=== PATIENT | female | born 1935 | race Caucasian/White ===

== ENCOUNTER 2020-07-09 15:18 | Outpatient (REF) | payer MEDICARE, SELFPAY ==
--- NOTE | ~2020-07-09 | MM_ITS ---
EXAMINATION: MM SCREENING DIGITAL BREAST TOMOSYNTHESIS, BILATERAL CLINICAL INFORMATION: Due for yearly exam. Right breast cancer 2016 status post lumpectomy. COMPARISON: Mammography: 03/31/2019, 03/15/2018, 01/21/2016 TECHNIQUE: Digital breast tomosynthesis is performed in both the craniocaudal and mediolateral oblique views along with computer-aided detection (CAD). Synthesized 2D images are generated from the tomosynthesis. FINDINGS: There are scattered areas of fibroglandular density (ACR BI-RADS breast composition Category b). There is bilateral fibronodular parenchymal pattern similar to prior exams with benign chronic postsurgical changes on the right. Right breast shows no interval mass or architectural abnormality or abnormal calcifications. There are chronic bilateral prominent draining veins. The left breast has benign dominant nodularity central anterior breast stable from prior studies. There is a nodule central left breast on current exam 9-10 cm from nipple. Finding is more conspicuous, possibly new. This resides close to the area of prior known dermal lesion. Patient will be recalled for additional imaging left breast. MM/MM tomosynthesis screening BI IMPRESSION: 1. Left: Nodule central breast 9 distal centimeters from nipple. There is a known dermal lesion on prior exams closed to this area, not currently marked. 2. Right: No mammographic evidence of malignancy. Old post surgical changes. ASSESSMENT: BI-RADS 0: Incomplete - Need Additional Imaging Evaluation RECOMMENDATION: 1. Additional views of the left breast (assess for dermal lesion and obtain spot CC and Spot ML view to include skin markers if applicable). 2. Targeted ultrasound if warranted after review of the additional views. 3. Radiology department staff will contact the patient for additional imaging. This patient's information was entered into a reminder system with a target due date for their next mammogram.
== END 2020-07-09 15:19 | disposition home or self-care (01) ==
LOC: HO.MAMMO 15:18
PROVIDERS: PCP Internal Medicine; Visit Provider Internal Medicine
DX: Z12.31 Encounter for screening mammogram for malignant neoplasm of breast (principal)
CPT/HCPCS: 77063; 77067

== ENCOUNTER 2020-07-16 13:04 | Outpatient (REF) | payer MEDICARE, SELFPAY ==
--- NOTE | ~2020-07-16 | MM_ITS ---
EXAMINATION: MM DIAGNOSTIC DIGITAL BREAST TOMOSYNTHESIS, LEFT US DIAGNOSTIC ULTRASOUND BREAST, LEFT CLINICAL INFORMATION: Recall from screening for nodule central left breast. Prior history contralateral right breast invasive ductal cancer 2016. COMPARISON: Mammography: 07/09/2020, 03/31/2019 TECHNIQUE: Digital breast tomosynthesis is performed. 2D images are generated from the tomosynthesis. The following views are obtained: 3-D spot CC, 3-D spot ML, 3-D spot MLO Ultrasound left breast is targeted to the outer quadrants. Grayscale imaging and color Doppler are performed without and with harmonics. The axilla and microvascular). FINDINGS: There are scattered areas of fibroglandular density (ACR BI-RADS breast composition Category b). The additional views confirm a nodule mid central 3:00 position approximately 0.7 x 0.4 cm with subtle fine irregular margins. Ultrasound left breast demonstrates small irregular hypoechoic nodule 2:30 position 5-6 cm from nipple measuring approximately 0.6 x 0.3 cm. This is believed to correspond to the finding on mammography. Results are discussed with the patient at time of visit. Ultrasound-guided core biopsy is recommended. Results and recommendation called to office ([facility]) for Dr. Avila on 07/16/2020. MM/MM tomosynthesis added views L IMPRESSION: Small irregular nodule taller than wide mid 3:00 position under 1 cm. ASSESSMENT: BI-RADS 4: Suspicious RECOMMENDATION: Ultrasound-guided core biopsy left breast nodule. This patient's information was entered into a reminder system with a target due date for their next mammogram.
== END 2020-07-16 13:05 | disposition home or self-care (01) ==
LOC: HO.MAMMO 13:04
PROVIDERS: Visit Provider Internal Medicine
DX: R92.2 Inconclusive mammogram (principal); Z85.3 Personal history of malignant neoplasm of breast
CPT/HCPCS: 76642; 77061; 77065

== ENCOUNTER → 2020-07-27 15:08 | Outpatient (BNVA) | payer MEDICARE, SELFPAY | PROVIDERS: PCP Internal Medicine; Visit Provider Surgery | DX: R92.8 Other abnormal and inconclusive findings on diagnostic imaging of breast (principal); N63.20 Unspecified lump in the left breast, unspecified quadrant; Z85.3 Personal history of malignant neoplasm of breast; Z98.890 Other specified postprocedural states | CPT/HCPCS: 99212 ==

== ENCOUNTER 2020-07-28 07:49 | Outpatient (REF) | payer MEDICARE, SELFPAY ==
--- NOTE | ~2020-07-28 | MM_ITS ---
EXAMINATION: ULTRASOUND GUIDED CORE BIOPSY BREAST, LEFT POST PROCEDURE DIGITAL MAMMOGRAM, LEFT CLINICAL INFORMATION: Small irregular hypoechoic nodule mid 3:00 position left breast under 1 cm. Prior history contralateral right breast invasive ductal cancer 2016. Age 84. COMPARISON: Mammography 07/09/2020, 07/16/2020, targeted left breast ultrasound 07/16/2020. FINDINGS: Proper informed consent is obtained from the patient after discussion of the procedure, potential risks and complications, and alternatives. Patient was given an opportunity for questions. The patient appeared to understand. The patient consented to the procedure and signed the consent form. GUIDANCE: Ultrasound-guided; aseptic technique. LESION: Subcentimeter hypoechoic nodule with ill-defined margins taller than wide 2:00 left breast mid depth. APPROACH: Lateral medial ANESTHESIA: 15 mL 1% lidocaine. DERMATOTOMY: Single skin tania dermatotomy performed. NEEDLE: 14-gauge Achieve core biopsy device with 13.5-gauge co-axial guide needle. CORES: 7. CLIP: HydroMARK; shape: open coil. POST PROCEDURE UNILATERAL DIGITAL MAMMOGRAM: The post biopsy mammogram is performed in separate room using separate digital mammography equipment from the biopsy procedure. CC and ML views are obtained. There are scattered areas of fibroglandular density (breast composition category: b). The clip marker is in position and corresponds to the finding on recent prior mammography. The ultrasound finding and mammographic finding are concordant. No gross hematoma. The patient tolerated the procedure well. No immediate complications. Home instructions reviewed with the patient. Final pathology results are pending. MM/MM diagnostic mammo unilat LT IMPRESSION: 1. Status post ultrasound-guided core biopsy left breast. 2. Clip placed: HydroMARK; shape: open coil. 3. Pathology pending. An addendum report will be issued.
== END 2020-07-28 07:50 | disposition home or self-care (01) ==
LOC: HO.MAMMO 07:49
PROVIDERS: Visit Provider Internal Medicine
DX: C50.412 Malignant neoplasm of upper-outer quadrant of left female breast (principal)
CPT/HCPCS: 19083; 77065; 88305; 88341; 88342; 88360; A4648

== ENCOUNTER 2020-08-18 06:52 | Day surgery (SDC) | payer MEDICARE, SELFPAY ==
[2020-08-11 10:23] VITALS: BMI 37.1
--- NOTE | 2020-08-17 12:58 | HO.ANESPROP2 ---
Documented by User: Sandra Blackburnney 08/17/20 13:09 HPI - Anesthesia Eval Consult details Narrative: 84yo F for Left Sentinal Node Biopsy, Breast Biopsy Needle Localization, Breast Lumpectomy Cleared by cardiology and pulmonary for LOCAL ANESTHESIA ONLY. No sedation. Case reviewed by Dr Sepulveda Continuous O2 @ 3L, Bipap QHS PMFSH Active Problems Active Problems: All Active Problems (Updated 08/11/20 @ 10:26 by Anjali Francis) Invasive ductal carcinoma of right breast (Acute) Abnormal mammogram of left breast (Acute) Past Medical History Medical History Back pain Congestive heart disease COPD (chronic obstructive pulmonary disease) GERD (gastroesophageal reflux disease) High cholesterol Hx of renal calculi Hypertension Osteoarthritis Oxygen dependent Respiratory failure with hypoxia and hypercapnia Sleep apnea Tuberculosis Wears dentures Surgical History Surgical History H/O hernia repair H/O left breast biopsy History of right cataract surgery Hx of colonoscopy Hx of hysterectomy Hx of total hip arthroplasty Status post right breast lumpectomy Social History Social History Patient Tobacco Use Status: Former Tobacco user Quit Date: Use of substances other than those prescribed or required for medical reasons: No Have you been hit, kicked, punched, or otherwise hurt by someone within the past year? If so, by whom?: No Are you DNR?: No Advance Directives: No Advance Directives Information Provided: No Advance Directives on File: No Meds Allergies Allergy/AdvReac Type Severity Reaction Status Date / Time No Known Allergies Allergy Verified 07/27/20 15:23 [No Known Allergies*] Home Medications Medication Instructions Recorded Confirmed Last Taken Type budesonide-formoterol HFA 160 2 puff INHALATION BID 07/27/20 08/11/20 Unknown History mcg-4.5 mcg/actuation aerosol inhaler diclofenac sodium 1 % topical gel TOPICAL 07/27/20 07/29/20 Unknown History ezetimibe 10 mg tablet 10 mg PO DAILY 07/27/20 08/11/20 Unknown History ketoconazole 2 % topical cream appl TOPICAL 07/27/20 07/29/20 Unknown History metolazone 5 mg tablet 5 mg PO DAILY 07/27/20 08/11/20 Unknown History metoprolol succinate 25 mg 25 mg PO DAILY 07/27/20 08/11/20 Unknown History tablet,extended release 24 hr nystatin 100,000 unit/mL oral PO 07/27/20 07/29/20 Unknown History suspension pantoprazole 40 mg tablet,delayed 40 mg PO DAILY PRN 07/27/20 08/11/20 Unknown History release potassium chloride 10 mEq 10 meq PO DAILY 07/27/20 08/11/20 Unknown History tablet,extended release(part/cryst) pravastatin 80 mg tablet 80 mg PO BEDTIME 07/27/20 08/11/20 Unknown History spironolactone 25 mg tablet 25 mg PO DAILY 07/27/20 08/11/20 Unknown History tiotropium bromide 18 mcg capsule 2 INHALATION TID 07/27/20 07/29/20 Unknown History with inhalation device torsemide 20 mg tablet 20 mg PO DAILY 07/27/20 08/11/20 Unknown History Exam Exam Date and Time: August 17, 2020 1258 Height,Weight and Vital Signs: Height 5 ft 2 in Weight 92.079 kg Narrative Narrative: EKG 07/2020 SR with PACs @ 94 Assessment and Plan Assessment Anesthesia Assessment: Chart Reviewed Documented by User: Char Bill 08/18/20 11:22 [facility] Past Medical History Medical History Back pain Congestive heart disease COPD (chronic obstructive pulmonary disease) GERD (gastroesophageal reflux disease) High cholesterol Hx of renal calculi Hypertension Osteoarthritis Oxygen dependent Respiratory failure with hypoxia and hypercapnia Sleep apnea Tuberculosis Wears dentures Surgical History Surgical History H/O hernia repair H/O left breast biopsy History of right cataract surgery Hx of colonoscopy Hx of hysterectomy Hx of total hip arthroplasty Status post right breast lumpectomy Social History Social History Patient Tobacco Use Status: Former Tobacco user Quit Date: Use of substances other than those prescribed or required for medical reasons: No Have you been hit, kicked, punched, or otherwise hurt by someone within the past year? If so, by whom?: No Are you DNR?: No Advance Directives: No Advance Directives Information Provided: No Advance Directives on File: No Meds Allergies Allergy/AdvReac Type Severity Reaction Status Date / Time No Known Allergies Allergy Verified 07/27/20 15:23 [No Known Allergies*] Home Medications Medication Instructions Recorded Confirmed Last Taken Type budesonide-formoterol HFA 160 2 puff INHALATION BID 07/27/20 08/11/20 Unknown History mcg-4.5 mcg/actuation aerosol inhaler diclofenac sodium 1 % topical gel TOPICAL 07/27/20 07/29/20 Unknown History ezetimibe 10 mg tablet 10 mg PO DAILY 07/27/20 08/11/20 Unknown History ketoconazole 2 % topical cream appl TOPICAL 07/27/20 07/29/20 Unknown History metolazone 5 mg tablet 5 mg PO DAILY 07/27/20 08/11/20 Unknown History metoprolol succinate 25 mg 25 mg PO DAILY 07/27/20 08/11/20 Unknown History tablet,extended release 24 hr nystatin 100,000 unit/mL oral PO 07/27/20 07/29/20 Unknown History suspension pantoprazole 40 mg tablet,delayed 40 mg PO DAILY PRN 07/27/20 08/11/20 Unknown History release potassium chloride 10 mEq 10 meq PO DAILY 07/27/20 08/11/20 Unknown History tablet,extended release(part/cryst) pravastatin 80 mg tablet 80 mg PO BEDTIME 07/27/20 08/11/20 Unknown History spironolactone 25 mg tablet 25 mg PO DAILY 07/27/20 08/11/20 Unknown History tiotropium bromide 18 mcg capsule 2 INHALATION TID 07/27/20 07/29/20 Unknown History with inhalation device torsemide 20 mg tablet 20 mg PO DAILY 07/27/20 08/11/20 Unknown History Exam Narrative Narrative: patients bow repairer custom recommends local only secondary to pulmonary status. discussed this with the patient who is aware of the recommendation. discussed the fact that if sedationis necessary to maintain her comfort we will safely administer judicious doses under full monitoring. dnr status documented and modified for perioperative period. fully discussed with patient and Dr. Ott. Airway Mallampati Class: II TM Dist: >3cm Neck ROM: Full Denture: Upper and Lower
--- NOTE | ~2020-08-18 | MM_ITS ---
EXAMINATION: MM MAMMOGRAM GUIDED NEEDLE LOCALIZATION BREAST, LEFT MM NEEDLE LOCALIZATION SPECIMEN FROM THE LEFT BREAST CLINICAL INFORMATION: Left breast invasive carcinoma with ductal and lobular features. COMPARISON: Mammography 07/09/2020, 07/16/2020, 07/28/2020, ultrasound left breast 07/16/2020, ultrasound-guided left breast biopsy 07/28/2020. TECHNIQUE NEEDLE LOC: Proper informed consent is obtained from the patient after discussion of the procedure, potential risks and complications, and alternatives including declining the procedure today. Patient was given an opportunity for questions. The patient appeared to understand. The patient consented to the procedure and signed the consent form. GUIDANCE: Digital mammography. APPROACH: Lateral Medial. TARGET: Small nodule central 3:00 left breast with overlying biopsy clip marker.. ANESTHESIA: lidocaine 1%: 6 mL. LOCALIZATION MARKER: Dolores MammaLok. 10 cm in length. The skin is prepped and local anesthesia administered. The needle is positioned and position assessed with mammography. The wire is hooked into position. [place] needle protector placed. The patient tolerated the procedure well and had no immediate complication. Following the procedure, 4% lidocaine ointment was administered to the left areola and covered with Tegaderm in anticipation of nuclear lymphoscintigraphy injection for sentinel lymph node mapping. Localization procedure results communicated to Dr. Vargas following the exam. TECHNIQUE SPECIMEN RADIOGRAPH: Imaging of the excised specimen is performed using digital mammography in 1 view. FINDINGS SPECIMEN RADIOGRAPH: The specimen shows the distal needle and distal hookwire are delivered intact. The biopsy clip marker is identified in the specimen. Results were called to Dr. Shaka Vargas in the operating room at the time of imaging. MM/MM needle loc LT IMPRESSION: 1. Status post left breast needle localization with wire hooked into position. 2. Post operative specimen radiograph obtained.
--- NOTE | ~2020-08-18 | NM_ITS ---
EXAMINATION: NM LYMPH SCINTIGRAPHY CLINICAL INFORMATION: Left breast invasive carcinoma COMPARISON: None TECHNIQUE: Following explaining left breast scintigraphy procedure, benefits and risks, consent was obtained by Dr. Valles. The area of the left breast areola was cleaned in an aseptic manner. 0.5 mCi of Lymphoseek was divided in 4 equal doses and injected in 4 quadrants around the areola. Imaging was obtained at 30 and 60 minutes postinjection. Patient tolerated procedure extremely well. FINDINGS: There is isotope activity seen in the 4 quadrants around the left breast areola. No abnormal activity seen in the axilla or along the intramammary chain at 30 or 60 minutes. NM/NM sentinel node w imaging IMPRESSION: Left breast lymphoscintigraphy. There is no sentinel node visualized in the left axilla or along the internal mammary chain.
[2020-08-18] MEDS: Lactated Ringers 1,000 ML 20 ML IVCONT (07:45)
[2020-08-18 07:46] VITALS: BP 124/72; PULSE 88; RESP 18; TEMP 37; O2SAT 93
--- NOTE | 2020-08-18 11:17 | PC.NURSE ---
PATIENT STATES THAT HER SON JANES MCKEON IS HER HEALTH CARE PROXY. DR. QUIÑONES PLACED AN ORDER FOR DNR IN THE COMPUTER. A DO NOT RESUSCITATE STATUS CLARIFICaTION FORM WAS SIGNED AND DATED AT PATIENT'S BEDSIDE IN BED 2.
--- NOTE | 2020-08-18 11:22 | P.CONAN_ITS ---
[facility] Active Problems Active Problems: All Active Problems (Updated 08/17/20 @ 13:02 by Sandra gamboa) Invasive ductal carcinoma of right breast (Acute) Abnormal mammogram of left breast (Acute) Past Medical History Medical History Back pain Congestive heart disease COPD (chronic obstructive pulmonary disease) GERD (gastroesophageal reflux disease) High cholesterol Hx of renal calculi Hypertension Osteoarthritis Oxygen dependent Respiratory failure with hypoxia and hypercapnia Sleep apnea Tuberculosis Wears dentures Surgical History Surgical History H/O hernia repair H/O left breast biopsy History of right cataract surgery Hx of colonoscopy Hx of hysterectomy Hx of total hip arthroplasty Status post right breast lumpectomy Social History Social History Patient Tobacco Use Status: Former Tobacco user Quit Date: Use of substances other than those prescribed or required for medical reasons: No Have you been hit, kicked, punched, or otherwise hurt by someone within the past year? If so, by whom?: No Are you DNR?: No Advance Directives: No Advance Directives Information Provided: No Advance Directives on File: No Meds Allergies Allergy/AdvReac Type Severity Reaction Status Date / Time No Known Allergies Allergy Verified 07/27/20 15:23 [No Known Allergies*] Active Medications: Current Medications Generic Name Dose Route Start Last Admin Trade Name Freq PRN Reason Stop Dose Admin Lactated Ringer's 1,000 mls @ 20 mls/hr 08/18/20 06:15 08/18/20 07:45 Lr IVCONT 20 mls/hr .Q24H HERBERT Administration Home Medications Medication Instructions Recorded Confirmed Last Taken Type budesonide-formoterol HFA 160 2 puff INHALATION BID 07/27/20 08/11/20 Unknown History mcg-4.5 mcg/actuation aerosol inhaler diclofenac sodium 1 % topical gel TOPICAL 07/27/20 07/29/20 Unknown History ezetimibe 10 mg tablet 10 mg PO DAILY 07/27/20 08/11/20 Unknown History ketoconazole 2 % topical cream appl TOPICAL 07/27/20 07/29/20 Unknown History metolazone 5 mg tablet 5 mg PO DAILY 07/27/20 08/11/20 Unknown History metoprolol succinate 25 mg 25 mg PO DAILY 07/27/20 08/11/20 Unknown History tablet,extended release 24 hr nystatin 100,000 unit/mL oral PO 07/27/20 07/29/20 Unknown History suspension pantoprazole 40 mg tablet,delayed 40 mg PO DAILY PRN 07/27/20 08/11/20 Unknown History release potassium chloride 10 mEq 10 meq PO DAILY 07/27/20 08/11/20 Unknown History tablet,extended release(part/cryst) pravastatin 80 mg tablet 80 mg PO BEDTIME 07/27/20 08/11/20 Unknown History spironolactone 25 mg tablet 25 mg PO DAILY 07/27/20 08/11/20 Unknown History tiotropium bromide 18 mcg capsule 2 INHALATION TID 07/27/20 07/29/20 Unknown History with inhalation device torsemide 20 mg tablet 20 mg PO DAILY 07/27/20 08/11/20 Unknown History Exam Exam Date and Time: August 18, 2020 1122 Height,Weight and Vital Signs: Height 5 ft 2 in Weight 92.079 kg Last Vital Signs Temp 98.6 F 08/18/20 07:46 Pulse 88 08/18/20 07:46 Resp 18 08/18/20 07:46 BP 124/72 08/18/20 07:46 Pulse Ox 93 08/18/20 07:46 Assessment and Plan Assessment Anesthesia Assessment: Anesthesia Plan Discussed and Chart Reviewed Final Anesthetic Review NPO: Yes ASA Class: III Final Preanesthetic Review: No Changes in Pt Med Stat, Meds/Allgs Chart Reviewed, Consent Obtained/Reviewed, Anes Risks/Benef Reviewed and DNR Form (If Appl.) Patient Risk: Intermediate Procedure Risk: Low Assessment/Block/Sedation in SS: Assess/Block/Sedation-SS Anesthetic Plan Anesthetic Plan: Other (Local with MAC) Disposition: Standard PACU
--- NOTE | 2020-08-18 13:02 | P.OP_ITS ---
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 Subsequent core biopsy revealed invasive ductal carcinoma with lobular features. She presents now for left breast lumpectomy with needle localization and sentinel node biopsy left axilla Operative findings: Localizing clip, needle, and density noted on specimen x- ray and on gross pathology. Margins were grossly negative. No radioactivity identified with the gamma probe during sentinel node identification therefore no lymph nodes were removed. Specimen: Left breast lumpectomy Estimated blood loss: 5 mL Procedure details: Patient was brought to the OR and placed in a supine position. After administering general anesthesia, the left breast was prepped with ChloraPrep draped in a sterile fashion. A surgical time-out was called and the consent confirmed. Preoperative antibiotics were administered and the dye boots were in place. Local anesthesia consisting of 1% lidocaine plain was then infiltrated around the localizing needle. Curvilinear incision was made in the inferior portion of the left breast in a transverse orientation. This was separate from the localizing needle tract. Incision was carried down through subcutaneous tissue. Superior and inferior skin flaps were then created using electrocautery. Dissection was continued starting along the medial margin medial to the distal tip of the localizing needle. This was continued down to chest wall. Dissection was continued under the needle which was the location of the density. Superior and inferior margins were then created followed by the lateral margin. A cloth wire weaver was used to divide the needle at this lateral margin. Specimen was marked with a long suture on the lateral margin short suture on the superior margin and looped suture on the deep margin. Specimen was sent to Radiology department for specimen x-ray followed by gross pathology. After assuring complete removal of the specimen, the wounds were checked for hemostasis. Wounds were irrigated with saline and suctioned dry. Deep breast tissue was then reapproximated using interrupted 3-0 Polysorb sutures. Dermis was reapproximated using interrupted 3-0 Polysorb sutures. Skin was then closed using a running subcuticular 4-0 Polysorb suture. Steri-Strips 2 x 2 gauze and Tegaderm were then applied. The patient tolerated the procedure well. Sponge, instrument, and needle counts reported as correct. The patient was transferred to PACU in stable condition.
[2020-08-18 13:03] VITALS: BP 128/67; PULSE 87; RESP 16; TEMP 37.2; O2SAT 95
[2020-08-18] MEDS: Acetaminophen 325 MG TABLET 975 MG PO (13:17)
[2020-08-18 13:18] VITALS: BP 137/86; PULSE 86; RESP 16; TEMP 36.8; O2SAT 95
== END 2020-08-18 13:54 | disposition home or self-care (01) ==
PROVIDERS: PCP Internal Medicine; Visit Provider Surgery
PROC: (CPT 19301; principal; 2020-08-18 11:00)
PROC: (CPT 19301; 2020-08-18 11:00)
PROC: (CPT 19301; 2020-08-18 11:00)
DX: C50.912 Malignant neoplasm of unspecified site of left female breast (principal); Z17.0 Estrogen receptor positive status [ER+]; Z98.890 Other specified postprocedural states; I11.0 Hypertensive heart disease with heart failure; I50.32 Chronic diastolic (congestive) heart failure; J44.9 Chronic obstructive pulmonary disease, unspecified; J96.92 Respiratory failure, unspecified with hypercapnia; J96.91 Respiratory failure, unspecified with hypoxia; Z87.891 Personal history of nicotine dependence; Z99.81 Dependence on supplemental oxygen; K21.9 Gastro-esophageal reflux disease without esophagitis; Z79.51 Long term (current) use of inhaled steroids; Z79.899 Other long term (current) drug therapy; Z99.89 Dependence on other enabling machines and devices; Z66 Do not resuscitate
CPT/HCPCS: 19301; 38525; 19281; 78195; 88307; 88329; A4648; A9520; J0690

== ENCOUNTER → 2020-08-26 15:10 | Outpatient (BNVA) | payer MEDICARE, SELFPAY | PROVIDERS: PCP Internal Medicine; Referring Provider Internal Medicine; Visit Provider Surgery | DX: C50.911 Malignant neoplasm of unspecified site of right female breast (principal) | CPT/HCPCS: 99212 ==

== ENCOUNTER → 2020-10-07 15:27 | Outpatient (BNVA) | payer MEDICARE, SELFPAY | PROVIDERS: PCP Internal Medicine; Referring Provider Internal Medicine; Visit Provider Surgery | DX: Z48.3 Aftercare following surgery for neoplasm (principal); C50.912 Malignant neoplasm of unspecified site of left female breast | CPT/HCPCS: 99212 ==

== ENCOUNTER → 2021-01-13 15:19 | Outpatient (BNVA) | payer MEDICARE, SELFPAY | PROVIDERS: PCP Internal Medicine; Referring Provider Internal Medicine; Visit Provider Surgery | DX: C50.512 Malignant neoplasm of lower-outer quadrant of left female breast (principal); C50.911 Malignant neoplasm of unspecified site of right female breast; Z17.0 Estrogen receptor positive status [ER+]; I10 Essential (primary) hypertension; E78.00 Pure hypercholesterolemia, unspecified; J96.91 Respiratory failure, unspecified with hypoxia; J96.92 Respiratory failure, unspecified with hypercapnia; Z87.891 Personal history of nicotine dependence; Z92.3 Personal history of irradiation; Z99.3 Dependence on wheelchair; Z66 Do not resuscitate; Z99.81 Dependence on supplemental oxygen | CPT/HCPCS: 99212 ==

== ENCOUNTER → 2021-08-09 15:34 | Outpatient (BNVA) | payer MEDICARE, SELFPAY | PROVIDERS: PCP Internal Medicine; Referring Provider Internal Medicine; Visit Provider Surgery | DX: C50.912 Malignant neoplasm of unspecified site of left female breast (principal); C50.911 Malignant neoplasm of unspecified site of right female breast; I89.0 Lymphedema, not elsewhere classified | CPT/HCPCS: 99212 ==

== ENCOUNTER → 2022-02-07 09:37 | Outpatient (BNVA) | payer MEDICARE, SELFPAY | PROVIDERS: PCP Internal Medicine; Visit Provider Surgery | DX: I89.0 Lymphedema, not elsewhere classified (principal); C50.912 Malignant neoplasm of unspecified site of left female breast; C50.911 Malignant neoplasm of unspecified site of right female breast | CPT/HCPCS: 99212 ==

== ENCOUNTER → 2022-08-08 15:17 | Outpatient (BNVA) | payer MEDICARE, SELFPAY | PROVIDERS: PCP Internal Medicine; Visit Provider Surgery | DX: C50.512 Malignant neoplasm of lower-outer quadrant of left female breast (principal); I89.0 Lymphedema, not elsewhere classified; J96.92 Respiratory failure, unspecified with hypercapnia; J96.91 Respiratory failure, unspecified with hypoxia; Z17.0 Estrogen receptor positive status [ER+]; Z85.3 Personal history of malignant neoplasm of breast; Z92.3 Personal history of irradiation; Z99.81 Dependence on supplemental oxygen | CPT/HCPCS: 99212 ==

== ENCOUNTER 2023-02-06 12:52 | Outpatient (AMB) | payer MEDICARE, SELFPAY ==
--- NOTE | 2023-02-06 13:04 | A.OFFVIS_ITS ---
Intake Vital Signs 02/06/23 13:06 Height 5 ft 2 in Weight 199 lb BMI 36.4 BP 120/70 Intake Visit Reasons: 6 mth breast exam Intake Note: Patient is seen in office for 6 month follow up visit, breast examination. 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 Accompanied by: Family/Other Allergies No Known Allergies [No Known Allergies*] Allergy (Verified 02/06/23 13:16) Medication List - Last Reconciled 02/06/23 by Shaka Vargas MD budesonide-formoterol 160-4.5 mcg/actuation 2 puffs inhalation BID diclofenac sodium 1% topical ezetimibe 10 mg PO DAILY ketoconazole 2% appl topical metolazone 2.5 mg PO DAILY PRN metoprolol succinate ER 25 mg PO DAILY nystatin PO pantoprazole 40 mg PO DAILY PRN potassium chloride ER 10 mEq PO DAILY pravastatin 80 mg PO BEDTIME spironolactone 25 mg PO DAILY tiotropium bromide 2 inhalation TID torsemide 20 mg PO DAILY tramadol mg PO TID HPI HPI Comments History of Present Illness Details Mrs. Bedoya returns following a left breast lumpectomy with needle localization for invasive ductal carcinoma with lobular features in the lower outer quadrant, performed under local anesthesia.? She was previously diagnosed with an infiltrating ductal carcinoma of the right breast and underwent a right breast lumpectomy with right axillary sentinel node biopsy on 03/14/2016.? She subsequently developed lymphedema of the right arm.? She underwent radiation therapy which was complicated by shortness of breath during the treatment.? She was initially prescribed tamoxifen but stopped taking it because of the potential side effects.?? A screening mammogram on 07/09/2020 with follow-up views and ultrasound obtained on 07/16/2020 revealed a left breast small irregular nodule taller than wide mid 3:00 position under 1 cm felt to be suspicious for malignancy (BI-RADS 4).? Subsequent left breast lumpectomy with needle localization and sentinel node biopsy on 08/18/2020 revealed: Invasive ductal carcinoma with ductal and lobular features grade 1, 0.9 cm, negative margins (0.4 cm), ER/TX positive, HER2 Alvaro negative. She was evaluated both by Medical and Radiation Oncology.? She completed radiation therapy which was complicated by a skin burn which required Silvadene dressings. The burn resolved following completion of the radiation therapy. She is currently on no antiestrogen therapy due to previous side effects. She has requested no further mammograms due to her overall medical condition. [facility] Medical History Respiratory failure with hypoxia and hypercapnia Wears dentures Hx of renal calculi GERD (gastroesophageal reflux disease) Back pain Osteoarthritis High cholesterol Hypertension Sleep apnea Oxygen dependent Tuberculosis Congestive heart disease COPD (chronic obstructive pulmonary disease) Surgical History Hx of colonoscopy Hx of hysterectomy Hx of total hip arthroplasty History of right cataract surgery Status post right breast lumpectomy H/O left breast biopsy H/O hernia repair Patient Tobacco Use Status: Former Tobacco user Quit Date: Review of Systems Const All systems reviewed & are unremarkable except as noted in HPI and below Card Denies chest pain and Denies irregular heart rhythm Resp Denies chest congestion, Denies hemoptysis and Denies wheezing Denies nipple discharge Skin/Breast Denies breast swelling, Denies breast skin changes, Denies breast pain, Denies breast mass, Denies change in breast shape and Denies nipple discharge Aller/Immun Denies wheezing Physical Exam Const Other: Patient in wheelchair General: cooperative, healthy appearing, comfortable and no acute distress Orientation/consciousness: patient oriented x3 Chest Other: Left breast: Incision site in the left breast is clean, dry, and intact No new skin change, nipple discharge, or palpable nodes. Slight tenderness with palpation of left axilla however now enlarged lymph nodes. Right breast with no skin change, nipple discharge, nipple retraction, palpable mass, or enlarged lymph nodes. Resp Effort & Inspection: normal respiratory effort GI Inspection: Yes normal to inspection Skin General skin exam: no rashes or lesions noted Neuro General: patient oriented x3 Extrem General: Yes edema (Right upper arm) Assessment & Plan Assessment & Plan (1) Lymphedema of right arm: Code(s): I89.0 - Lymphedema, not elsewhere classified (2) Invasive ductal carcinoma of left breast: Code(s): C50.912 - Malignant neoplasm of unspecified site of left female breast (3) Invasive ductal carcinoma of right breast: Code(s): C50.911 - Malignant neoplasm of unspecified site of right female breast Plan 87-year-old female patient with a previous history of invasive ductal carcinoma of the right breast now with invasive ductal carcinoma of the left breast. She underwent lumpectomy with attempted sentinel node biopsy. No sentinel node could be identified on lymphoscintigraphy or with the gamma probe. She was subsequently evaluated by Medical and Radiation Oncology. She completed radiation therapy to the left breast and developed a skin burn requiring Silvadene cream. Examination today reveals no evidence of recurrence disease in either breast. She underwent diagnostic mammography on 07/09/2020, prior to her recent biopsy. Patient wishes to avoid any further mammograms given her age and poor health. She will return in 6 months for follow-up breast examination. She is welcome to call sooner for any concerns. Coding Level of Care Code Est Pt Level 3 (07492) Diagnoses Lymphedema of right arm I89.0 Invasive ductal carcinoma of left breast C50.912 Invasive ductal carcinoma of right breast C50.911
[2023-02-06 13:06] VITALS: BP 120/70; BMI 36.4
== END 2023-02-06 13:18 | disposition home or self-care (01) ==
PROVIDERS: PCP Internal Medicine; Visit Provider Surgery
DX: I89.0 Lymphedema, not elsewhere classified (principal); C50.912 Malignant neoplasm of unspecified site of left female breast; C50.911 Malignant neoplasm of unspecified site of right female breast
CPT/HCPCS: 99213

== ENCOUNTER → 2023-02-06 12:52 | Outpatient (BNVA) | payer MEDICARE, SELFPAY | PROVIDERS: PCP Internal Medicine; Visit Provider Surgery | DX: C50.912 Malignant neoplasm of unspecified site of left female breast (principal); C50.911 Malignant neoplasm of unspecified site of right female breast; I89.0 Lymphedema, not elsewhere classified | CPT/HCPCS: 99212 ==